=== PATIENT | male | born 2005 | race Caucasian/White ===

== ENCOUNTER → 2025-07-11 09:19 | Outpatient (BNV) | payer BC, SELFPAY | PROVIDERS: Visit Provider Psychiatry & Neurology Psychiatry | DX: F33.9 Major depressive disorder, recurrent, unspecified (principal) | CPT/HCPCS: 90792 ==

== ENCOUNTER 2025-07-18 11:15 | Outpatient (RCR) | payer BC, SELFPAY ==
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
[2025-07-12 10:47] VITALS: BMI 42.6
[2025-07-12 10:48] VITALS: BP 102/74; PULSE 72; TEMP 36.4
--- NOTE | 2025-07-12 11:26 | PC.ADMIT ---
Patient is a 20 year old single male who was referred to [facility] by [facility] where he was admitted from 06/21-07/08/25 after self presenting to the hospital with his mother following a suicide attempt. Patient reportedly tried to hang himself according to records. Patient also was using Cannabis daily reports he was using 4 bowls a day. Reports last use was prior to hospitalization and has not plans to use again. Patient declined [facility] at this time. Patient aware that if he is struggling with cravings or relapse anytime during [facility] admission to notify staff and he could attend [facility] groups for more support. Regarding hospitalization patient stated, It was very helpful. I was put on [place] and that helped significantly. Patient is alert and oriented x4. He is calm and cooperative. He presented with depressed mood and affect. He denied SI, no HI. He was given a copy of his safety plan if needed. Medications updated with patient and patient's d/c list from [facility]. Patient reports he is taking medications as prescribed.
--- NOTE | 2025-07-18 15:13 | HO.PHP ---
Yuniors case was opened during weekly treatment the [facility]
--- NOTE | 2025-07-22 08:28 | PM.EVENT ---
Event Note Date of Service: 07/22/25 Time Spent With Patient Time: Total time managing care of this patient today __15__ minutes.
== END 2025-07-18 23:59 | disposition home or self-care (01) ==
LOC: HO.PHPA 11:15
PROVIDERS: Visit Provider Psychiatry & Neurology Psychiatry
DX: F33.9 Major depressive disorder, recurrent, unspecified (principal); Z79.899 Other long term (current) drug therapy; Z91.51 Personal history of suicidal behavior
CPT/HCPCS: 90791; 90853